=== PATIENT | female | born 1995 | race Caucasian/White ===

== ENCOUNTER 2021-01-21 22:55 | Emergency (ER) | payer SELFPAY ==
[~2021-01-21 22:55] MED LIST: LOMOTIL 0.025 M1 TA1 PO; TRAMADOL HCL50 MG PO; ZOFRAN ODT4 MG SL
[2021-01-21 23:19] VITALS: BP 134/86
== END 2021-01-21 23:56 | disposition home or self-care (01) ==
LOC: ED 22:55
DX: F41.1 Generalized anxiety disorder (principal)

== ENCOUNTER → 2022-10-18 | Outpatient (CLI) | payer OTHER | END | disposition home or self-care (01) | LOC: ORTHO 02:13 | PROVIDERS: ATTEND Orthopaedic Surgery | DX: M79.672 Pain in left foot (principal) ==

== ENCOUNTER → 2025-01-01 | Outpatient (CLI) | payer OTHER | END | disposition home or self-care (01) | LOC: RESCLI 10:45 | PROVIDERS: ATTEND Internal Medicine | DX: T63.301A Toxic effect of unspecified spider venom, accidental (unintentional), initial encounter (principal); Z65.5 Exposure to disaster, war and other hostilities; Z79.899 Other long term (current) drug therapy ==